=== PATIENT | female | born 1940 ===

== ENCOUNTER 2016-07-07 11:35 | Outpatient (CLI) | payer MEDICARE, OTHER ==
--- NOTE | 2016-07-07 12:05 | Diagnostic Imaging Report ---
Indications: COUGH Technique: AP and lateral chest Findings: Comparison: None Inspiratory effort is suboptimal. Interstitial markings increased throughout both lungs, most prominent in the bases. Cardiac silhouette partially obscured. Pulmonary vascular redistribution suggested. No pleural abnormalities detected. Aortic arch calcified and elongated. Osteophytes in the mid to lower thoracic spine. Thoracic kyphosis is exaggerated. Surgical clips in upper abdomen. IMPRESSION: Findings suggest congestive heart failure. Underlying chronic interstitial disease must also be considered. Aortosclerosis Degenerative spondylosis
== END 2016-07-07 14:05 | disposition home or self-care (01) ==
LOC: RAD 11:35
DX: R05 Cough (principal); I70.0 Atherosclerosis of aorta; M47.9 Spondylosis, unspecified; R06.02 Shortness of breath
CPT/HCPCS: 71020

== ENCOUNTER → 2016-10-22 | Outpatient (CLI) | payer MEDICARE, OTHER ==
--- NOTE | 2016-10-23 10:41 | Diagnostic Imaging Report ---
Indications: hip pain Findings: Two views of the left hip were obtained. There is no obvious acute fracture identified. Alignment of the left hip is anatomic. There is narrowing of the left hip joint consistent with os are arthritis. There is a needle projected over the anterior left thigh. This is in the soft tissue. Please correlate clinically. Impression: No acute fracture identified. Soft tissue foreign body
== END | disposition home or self-care (01) ==
LOC: RAD 14:27
DX: M25.552 Pain in left hip (principal)
CPT/HCPCS: 73502